=== PATIENT | male | born 1975 | race Caucasian/White ===

== ENCOUNTER 2017-07-06 17:27 | Emergency (ER) | payer MEDICARE ==
[~2017-07-06] VITALS: Ht 177.8 cm; Wt 74.8 kg
[~2017-07-06 17:27] MED LIST: Crutch1 EACH MISC; HYDACE10B PO; HYDACE5 PO; IBUP400 PO; IBUP800 PO; NAPR500 PO; Norco 5-325 Ta1 EACH PO; OXYACE5T PO; SULTRIDS PO; TRAM50 PO
[2017-07-06 20:15] LABS: Calcium, Ionized (POC) 1.08 mmol/L (1.10-1.46); Chloride (POC) 98 mmol/L (98-108); Creatinine (POC) 0.7 mg/dL (0.8-1.3); Glucose (ISTAT POC) 103 mg/dL (70-99); Hemoglobin (POC) 12.9 g/dL (13.5-17.5); Potassium (POC) 3.6 mmol/L (3.5-5.5); Sodium (POC) 134 mmol/L (135-148); Total CO2 (POC) 24 mmol/L (21-32)
== END 2017-07-06 21:12 | disposition home or self-care (01) ==
LOC: ER 17:27
PROVIDERS: Physician Assistant
DX: B34.9 Viral infection, unspecified (principal); F17.200 Nicotine dependence, unspecified, uncomplicated; Z88.0 Allergy status to penicillin
CPT/HCPCS: 36415; 71046; 80047; 82947; 85014; 93005; 93010; 96360; 99283; J7030

== ENCOUNTER 2019-01-27 10:27 | Day surgery (SDC) | payer OTHER ==
[~2019-01-27 10:27] MED LIST changes: +Bactrim Ds Tab1 EACH PO; +Cephalexin500 M1 PO
[2019-01-27] MEDS ORDERED: CLINDAMYCI600 MG/51 IV (17:00)
== END 2019-01-27 17:11 | disposition home or self-care (01) ==
LOC: ATC 10:27
DX: L03.113 Cellulitis of right upper limb (principal); L02.413 Cutaneous abscess of right upper limb; M79.601 Pain in right arm; Z88.0 Allergy status to penicillin; F17.210 Nicotine dependence, cigarettes, uncomplicated
CPT/HCPCS: 10060; 73201; 80053; 83605; 85025; 87040; 96365; 96365-59; 96367-59; 99284-25; J0690; Q9967

== ENCOUNTER 2019-01-28 01:40 | Inpatient (IN) | payer OTHER ==
[~2019-01-28] VITALS: Ht 177.8 cm; Wt 76.7 kg
[~2019-01-28 01:40] MED LIST changes: +CLINDAMYCI600 MG/51 IV
[2019-01-28 03:05] LABS: BASOPHILS ABSOLUTE AUTO 0.01 K/mm3 (0.00-0.23); BASOPHILS PERCENT AUTO 0 % (0-2); EOSINOPHILS ABSOLUTE AUTO 0.19 K/mm3 (0.00-0.68); EOSINOPHILS PERCENT AUTO 3 % (0-6); Hemoglobin 10.5 g/dL (13.5-17.5); IMMATURE GRAN ABSOLUTE AUTO 0.02 K/mm3 (0.00-0.10); IMMATURE GRAN PERCENT AUTO 0 % (0-1); LYMPHOCYTES ABSOLUTE AUTO 1.66 K/mm3 (0.84-5.20); LYMPHOCYTES PERCENT AUTO 30 % (21-46); MONOCYTES ABSOLUTE AUTO 0.64 K/mm3 (0.16-1.47); MONOCYTES PERCENT AUTO 12 % (4-13); Mean Corpuscular HGB Conc 32.8 g/dL (31.5-36.5); Mean Corpuscular Volume 88 fL (80-100); Mean Platelet Volume 9.7 fL (9.1-12.4); NEUTROPHILS ABSOLUTE AUTO 2.99 K/mm3 (1.96-9.15); NEUTROPHILS PERCENT AUTO 54 % (41-73); Platelet Count 207 K/mm3 (150-400); RDW Coefficient Variation 13.1 % (11.7-14.2); RDW Standard Deviation 42.7 fL (35.1-46.3); Red Blood Cell Count 3.62 M/mm3 (4.30-5.90); White Blood Cell Count 5.51 K/mm3 (4.00-11.30)
--- NOTE | 2019-01-28 06:20 | NUR ---
PT ARRIVED TO THE FLOOR AT 0437 VIA WHEELCHAIR. PT HAD VSS AND COMPLAINED OF 9/10 PAIN IN HIS RIGHT ARM. PT'S ADMISSION WAS DONE AND ANALGESIC WAS GIVEN TO GOOD EFFECT. SNACK WAS PROVIDED. PT WAS EDUCATED THAT IF HE WERE TO LEAVE THE FLOOR FOR WHATEVER REASON, HE MUST LET STAFF KNOW FIRST. PT VERBALLY AGREED. WILL CONTINUE TO MONITOR.
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
--- NOTE | 2019-01-29 03:16 | NUR ---
SHIFT SUMMARY PT IS ALERT, ORIENTED, AND INDEPENDENT IN THE ROOM. PAIN WAS MANAGED WITH ORDERED ANALGESICS. PT IS ON THE SCHEDULE FOR AN I&D LATER TODAY. PT MADE NPO FOR THE PROCEDURE. ISOLATION PRECAUTIONS MAINTAINED. PT WAS ABLE TO SHOWER INDEPENDENTLY, HIS IV AND RIGHT ARM DRESSING WERE COVERED TO KEEP THEM DRY. NO OTHER COMPLAINTS FROM PT AT THIS TIME. VSS. WILL CONTINUE TO MONITOR.
[2019-01-29 14:18] LABS: Creatinine, Blood 0.56 mg/dL (0.60-1.20); Vancomycin, Trough 11.8 ug/mL (5.0-10.0)
--- NOTE | 2019-01-29 18:53 | NUR ---
SUMMARY- PT ALERT AND ORIENTED INDEPENDANT. DR KUNZ AT BEDSIDE AM CHANGED R ARM PACKING AT BEDSIDE. PT ON A REGULAR DIET. PAIN CONTROLLED WITH ORAL OXYCODONE. NEW POWERGLIDE TODAY. TOLERATING FOOD AND FLUIDS. NPO AFTER [facility] I&D 01/30
--- NOTE | 2019-01-30 | NUR ---
NPO AFTER MIDNIGHT.
[2019-01-30 05:34] LABS: Hematocrit 38.2 % (37.0-53.0); Hemoglobin 12.3 g/dL (13.5-17.5); Mean Corpuscular HGB 28.7 pg (26.0-34.0); Mean Corpuscular HGB Conc 32.2 g/dL (31.5-36.5); Mean Corpuscular Volume 89 fL (80-100); Mean Platelet Volume 9.6 fL (9.1-12.4); Platelet Count 255 K/mm3 (150-400); RDW Standard Deviation 42.4 fL (35.1-46.3); Red Blood Cell Count 4.29 M/mm3 (4.30-5.90); White Blood Cell Count 3.96 K/mm3 (4.00-11.30)
[2019-01-30 05:59] LABS: Anion Gap 7 mmol/L (6-16); Blood Urea Nitrogen 18 mg/dL (8-24); Bun/Creatinine Ratio 27.7 (12.0-20.0); CO2, Blood 27 mmol/L (21-32); Calcium, Blood 8.7 mg/dL (8.5-10.1); Chloride, Blood 107 mmol/L (98-108); Creatinine, Blood 0.65 mg/dL (0.60-1.20); Glomerular Filtration Rate >60 (60-); Glucose, Blood 84 mg/dL (70-99); Potassium, Blood 4.1 mmol/L (3.5-5.5); Sodium, Blood 141 mmol/L (136-145)
--- NOTE | 2019-01-30 06:05 | NUR ---
SHIFT SUMMARY: 43 Y/O MALE HAD RESTLESS NIGHT AT TIMES WITH PATIENT EASILY BECOMING AGITATED AT NURSING AT TIMES DURING NIGHT WHEN HE FELT PAIN MEDS SHOULD BE ORDERED MORE OFTEN AND WHEN TOUCH UP WORKER ATTEMPTED BLOOD DRAW THIS AM AND PATIENT WAS NEEDED TO HAVE A SECOND ATTEMPT AT BLOOD DRAW WHICH WAS SUCCESSFUL. PT IS NOTED TO HAVE VERY POOR VEINS FROM PAST HISTORY IV DRUG USAGE. PT RATED RFA PAIN 6/10 AND WAS GIVEN TORADOL 15MG IVP X 2 WITH RELIEF AND OXYCODONE 5MG PO X 1 WITH RELIEF. PT NPO SINCE MIDNIGHT WITH SURGERY TENTATIVELY SCHEDULED FOR 1130 WITH PATIENT NOTIFIED, BED LOW POSITION, CALL LIGHT AT SIDE.
--- NOTE | 2019-01-30 18:06 | NUR ---
SHIFT SUMMARY PATIENT IS PLEASANT, ALERT AND ORIENTED. NO ACUTE CONCERNS FROM THE PATIENT MINUS PAIN MANAGEMENT. HE HAD HIS DRESSING CHANGED TODAY, WOUND WAS UNDRESSED AND REPACKED WITH DR. KUNZ THIS AM. HE IS PLEASANT AT THIS TIME AND HAS FAMILY IN THE ROOM.
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
--- NOTE | 2019-01-31 13:28 | NUR ---
PT HAD WOUND REPACKED TODAY PER DR ORDERS. PT TREATED FOR PAIN PER EMAR. PT DOES NOT TOLERATE WELL AND REPORTS EXTREME PAIN WHEN PACKING BEING DONE. DRESSING REPLACED.
[2019-01-31 13:37] LABS: Vancomycin, Trough 19.6 ug/mL (5.0-10.0)
--- NOTE | 2019-01-31 17:49 | NUR ---
PT MOVES AROUND IN ROOM INDEPENDENTLY AND IS AOX4. PT HAS A VERY BUSY PERSONALITY AND HAS TROUBLE STAYING PUT, TAKING MULTIPLE WALKS OUTSIDE. PT HAS KEEP TRIPS SHORT AND HAS RETURNED TO ROOM IN LESS THAN AN HOUR. PT THIS TIME HAS BEEN AVAIBLE FOR ALL OF HIS MEDICATIONS AND HAS BEEN COOPERATIVE. WILL CONTINUE TO MONITOR.
--- NOTE | 2019-02-01 04:11 | NUR ---
SHIFT SUMMARY A/O, ABLE TO MAKE NEEDS KNOWN. COOPERATIVE WITH CARE. CALLS AND ANSWERS QUESTIONS APPROPRIATELY. C/O PAIN/DISCOMFORT TO RFA; MEDICATED PER EMAR. PG REMAINS PATENT. UP INDEPENDENTLY IN ROOM AND HALLWAYS. COMPLIANT THIS SHIFT WITH AMOUNT OF TIME ALLOTED FOR OUTSIDE USE. NO OTHER ACUTE CHANGES NOTED OVERNIGHT. APPEARED TO REST MUCH OF SHIFT. BED IN LOWEST POSITION. CALL LIGHT AND BELONGINGS WITHIN REACH. WCTM. REPORT TO ONCOMING RN.
[2019-02-01] MEDS ORDERED: Bactrim Ds Tab1 EACH PO (11:21)
--- NOTE | 2019-02-01 12:00 | NUR ---
DISCHARGE PT PROVIDED WITH WRITTEN AND VERBAL DISCHARGE INSTRUCTIONS. PT REPORTED UNDERSTANDING INSTRUCTIONS AFTER QUESTIONS WERE ANSWERED. PT EDUCATED TO FOLLOW-UP WITH THE [facility] TOMORROW FOR DRESSING CHANGE. ORDERS FAXED TO [facility] BY HANG FOLEY RN. PT REPORTED HE WILL NOTIFY STAFF WHEN HE LEAVES THE ROOM.
--- NOTE | 2019-02-01 12:03 | NUR ---
DRESSING CHANGE PT WAS PRE-MEDICATED WITH [facility] FOR DRESSING AND PACKING CHANGE. PT WAS GIVEN DISCHARGE INFROMATION BUT WITH WAIT TO LEAVE SINCE HE HAD FENTANLY. WILL MONITOR UNTIL DISCHARGE.
--- NOTE | 2019-02-01 12:22 | NUR ---
PT DISCHARGED AT APPROXIMATELY 1220. PT AMBULATED OUT INDEPENDENTLY.
== END 2019-02-01 12:21 | disposition home or self-care (01) | DRG 580 ==
LOC: ER 01:40 → MEDS 01:41 → ENPENDDIS 02-01 10:30 → MEDS 02-01 12:21
PROVIDERS: Emergency Medicine; Internal Medicine; ADMIT Hospitalist
PROC: 0J9G0ZZ Drainage of Right Lower Arm Subcutaneous Tissue and Fascia, Open Approach (ICD-10-PCS; principal; 2019-01-29)
DX: L02.413 Cutaneous abscess of right upper limb (principal); M87.852 Other osteonecrosis, left femur; M87.851 Other osteonecrosis, right femur; L03.114 Cellulitis of left upper limb; F15.19 Other stimulant abuse with unspecified stimulant-induced disorder; R03.0 Elevated blood-pressure reading, without diagnosis of hypertension; F17.210 Nicotine dependence, cigarettes, uncomplicated; B95.62 Methicillin resistant Staphylococcus aureus infection as the cause of diseases classified elsewhere
CPT/HCPCS: 36415; 80048; 80053; 80202; 82565; 83605; 85025; 85027; 87040; 87070; 87075; 87077; 87147; 87186; 87205; 96365; 96366; 96372; 96375; 96376; 99283; 99284-25; A9270; G0378; J0690; J1650; J1885; J2270; J3010; J3370; J7050

== ENCOUNTER 2019-02-03 12:49 | Emergency (ER) | payer OTHER ==
[~2019-02-03] VITALS: Ht 177.8 cm; Wt 74.8 kg
[2019-02-03] MEDS ORDERED: Bactrim Ds Tab1 EACH PO (13:40)
== END 2019-02-03 13:55 | disposition home or self-care (01) ==
LOC: ER 12:49
DX: L02.413 Cutaneous abscess of right upper limb (principal); B95.62 Methicillin resistant Staphylococcus aureus infection as the cause of diseases classified elsewhere; F17.210 Nicotine dependence, cigarettes, uncomplicated; Z88.0 Allergy status to penicillin; Z91.14 Patient's other noncompliance with medication regimen
CPT/HCPCS: 99282

== ENCOUNTER 2025-05-19 06:38 | Emergency (ER) | payer OTHER ==
[~2025-05-19] VITALS: Ht 177.8 cm; Wt 70.3 kg
[2025-05-19] MEDS ORDERED: HYDHCL25 PO (07:33)
[2025-05-19] MEDS ORDERED: Dexamethasone Sod Phos 10 MG/ML 1ML VIAL IM ONE (07:35)
[2025-05-19 07:50] VITALS: BP 122/86
== END 2025-05-19 08:46 | disposition home or self-care (01) ==
LOC: ER 06:38
DX: L23.7 Allergic contact dermatitis due to plants, except food (principal); F17.210 Nicotine dependence, cigarettes, uncomplicated; Z96.643 Presence of artificial hip joint, bilateral; Z88.0 Allergy status to penicillin; Z79.899 Other long term (current) drug therapy
CPT/HCPCS: 96372; 99282-25; A9270; J1100